=== PATIENT | female | born 2000 | race Caucasian/White ===

== ENCOUNTER 2020-02-16 23:52 | Emergency (ER) | payer OTHER ==
[~2020-02-16] VITALS: Ht 147.3 cm; Wt 50.4 kg
[2020-02-17] MEDS ORDERED: VISTARIL 25 MG25 M1 PO (00:29)
[2020-02-17 00:55] VITALS: BP 130/87
== END 2020-02-17 00:56 | disposition home or self-care (01) ==
LOC: M.ERS 23:52
DX: F41.9 Anxiety disorder, unspecified (principal)

== ENCOUNTER 2020-02-28 20:43 | Observation (INO) | payer OTHER ==
[~2020-02-28] VITALS: Ht 147.3 cm; Wt 49.9 kg
[~2020-02-28 20:43] MED LIST: VISTARIL 25 MG25 M1 PO
[2020-02-28 20:46] VITALS: BP 97/45
[2020-02-28 21:32] LABS: ABSOLUTE BASOPHILS 0.1 thou/uL (0.0-0.2); ABSOLUTE EOSINOPHILS 0.4 thou/uL (0.0-0.7); ABSOLUTE LYMPHOCYTES 2.5 thou/uL (0.8-5.3); ABSOLUTE MONOCYTES 0.8 thou/uL (0.0-1.2); ABSOLUTE NEUTROPHILS 6.3 thou/uL (1.6-8.1); BASOPHILS 0.6 %; EOSINOPHILS 3.7 %; HEMATOCRIT 39.7 % (37.0-47.0); LYMPHOCYTES 25.4 %; MCH 29.9 pg (26.0-34.0); MCHC 35.3 g/dL (28.0-37.0); MCV 84.7 fL (80.0-100.0); MONOCYTES 7.7 %; NUCLEATED RBCS 0 /100WBC; PLATELET COUNT* 358 thou/uL (150-400); POLYS 62.6 %; RBC 4.69 mil/uL (4.20-5.00); RDW-CV 12.7 % (10.5-14.5)
[2020-02-28 21:48] LABS: CALCIUM 8.8 mg/dL (8.5-10.1); CREATININE 0.7 mg/dL (0.6-1.3); POTASSIUM 3.9 mmol/L (3.5-5.1)
[2020-02-28 21:52] LABS: ALBUMIN 3.7 g/dL (3.4-5.0); MAGNESIUM 2.5 mg/dL (1.8-2.4); TOTAL BILIRUBIN 0.5 mg/dL (<0.1-1.0); TOTAL PROTEIN 7.4 g/dL (6.4-8.2)
[2020-02-29] MEDS ORDERED: DOXYCYCLINE 10100 M2 PO (03:20)
[2020-02-29] MEDS ORDERED: ZPAK PO (03:20)
[2020-02-29 03:30] VITALS: BP 114/71
--- NOTE | 2020-02-29 10:32 | EKG ---
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 /EPI
== END 2020-02-29 04:29 | disposition left against medical advice (07) ==
LOC: M.ERS 20:43 → M.TBA-ER 02-29 01:52 → M.2W 02-29 02:03
PROVIDERS: Emergency Medicine Emergency Medical Services; ADMIT Internal Medicine; ATTEND Internal Medicine
DX: R07.89 Other chest pain (principal); F41.9 Anxiety disorder, unspecified

== ENCOUNTER 2020-02-29 13:34 | Emergency (ER) | payer OTHER ==
[~2020-02-29] VITALS: Ht 147.3 cm; Wt 49.9 kg
--- NOTE | ~2020-02-29 | CON ---
[address] [address] CONSULTATION Name: ELVI HIGH [id number] Admission: 02/29/20 Attend Phys: Discharge: 02/29/20 Date of : [birth year] Report #: [id number] THIS REPORT FOR: //name// cc: KRISHNA Chamberlain family physician/PCP KRISHNA - Cintia family physician/PCP ~ THIS REPORT FOR: //name// CC: KRISHNA physician/PCP Traci Sweet DATE OF SERVICE: 02/29/2020 CARDIOLOGY CONSULTATION HISTORY OF PRESENT ILLNESS: The patient is a 20-year-old single white female who I was asked to see in the Emergency Room today after she complained of chest pain. The patient has a long and extensive past medical history. She apparently was born premature as a twin at [facility]. Several days after being born, she underwent open heart surgery. According to family members. 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 She underwent corrective surgery and had a hole in her heart, replaced. When she was 10 years old, she required a second open heart surgery at [facility]. 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 She was told she may need a repeat surgery in the future. She last saw her fast food sales assistant at [facility] about a year ago and had an echocardiogram. She was told she had no restrictions from a heart standpoint. She does receive SBE prophylaxis. The patient states recently she has been under a lot of stress. For the past several weeks, she has had continuous pain in her chest. She describes a sharp pain. It is not related to exertion, meals or lifting. She has had no trauma to her chest. She denied any drainage. There is no rash. She denies any vomiting, fever or cough. She denies palpitations. She does get short of breath when she exerts herself. She has occasional edema. PAST MEDICAL HISTORY: Otherwise unremarkable. She has a control implant in place. She has no history of hypertension, diabetes. ALLERGIES: She has no known drug allergies. MEDICATIONS: She is on no chronic medications. FAMILY HISTORY: Negative for heart disease. SOCIAL HISTORY: She is single, lives with her father. 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 No smoking or alcohol abuse or illicit drug use. REVIEW OF SYSTEMS: No history of stroke, asthma, liver disease, kidney disease, [place] [address] CONSULTATION Name: ELVI HIGH Room: [facility]#: [id number] Admission: 02/29/20 Attend Phys: Discharge: 02/29/20 Date of : [birth year] Report #: [id number] cancer, psychiatric illness, chronic skin condition. PHYSICAL EXAMINATION: GENERAL: Revealed a young white female, who appeared in no distress. VITAL SIGNS: She had a blood pressure of 100/60, pulse is 100. She is afebrile. HEENT: She was anicteric. Conjunctivae are pink. Mucous membranes moist. NECK: Veins do not appear distended. CHEST: Clear to auscultation. CARDIOVASCULAR: Regular rate and rhythm, grade 4 systolic ejection murmur at left sternal border, grade 2 diastolic blowing murmur. ABDOMEN: Soft. EXTREMITIES: Had no edema. Posterior tibial pulse 2+ bilaterally. SKIN: Cool and dry. NEUROLOGIC: Nonfocal. RADIOLOGICAL DATA: ECG shows a sinus rhythm with a right bundle branch block. Her workup in the Emergency Room, she had a portable chest x-ray that showed normal heart size, focal infiltrate in the right perihilar area. She had a CT scan of the chest performed, evidence of previous surgical correction. The ascending aorta was prominent. No evidence of pulmonary embolus. LABORATORY DATA: Sodium 137, creatinine 0.8. Liver function studies were normal. Troponins all 0.06. BNP 326. White blood cell count 10.2, hemoglobin 14.7. IMPRESSION AND RECOMMENDATIONS: 1. Congenital heart disease. Previous correction of transposition of great arteries. The patient followed at [facility]. 2. Previous valve replacement. The patient might require repeat valve surgery in the future. 3. Anxiety. 4. Chest pain. Possible musculoskeletal. Recommend no additional cardiac evaluation at this time. I think it is reasonable to discharge the patient from the Emergency Room and have her follow up with [facility]. 5. control implant in place. By: [id number] Banda MD, FACC /nt
[~2020-02-29 13:34] MED LIST changes: +DOXYCYCLINE 10100 M2 PO; +ZPAK PO
[2020-02-29 16:05] LABS: ABSOLUTE BASOPHILS 0.1 thou/uL (0.0-0.2); ABSOLUTE EOSINOPHILS 0.2 thou/uL (0.0-0.7); ABSOLUTE LYMPHOCYTES 1.5 thou/uL (0.8-5.3); ABSOLUTE MONOCYTES 0.6 thou/uL (0.0-1.2); ABSOLUTE NEUTROPHILS 7.8 thou/uL (1.6-8.1); BASOPHILS 0.5 %; EOSINOPHILS 1.5 %; HEMATOCRIT 40.7 % (37.0-47.0); HEMOGLOBIN 14.7 gm/dL (12.0-15.0); LYMPHOCYTES 14.9 %; MCH 30.5 pg (26.0-34.0); MCV 84.7 fL (80.0-100.0); MONOCYTES 6.4 %; NUCLEATED RBCS 0 /100WBC; PLATELET COUNT* 376 thou/uL (150-400); POLYS 76.7 %; RBC 4.81 mil/uL (4.20-5.00); RDW-CV 12.8 % (10.5-14.5); WBC 10.2 thou/uL (4.0-11.0)
[2020-02-29 16:39] LABS: CALCIUM 8.8 mg/dL (8.5-10.1); CREATININE 0.8 mg/dL (0.6-1.3); POTASSIUM 3.7 mmol/L (3.5-5.1)
[2020-02-29 16:44] LABS: ALBUMIN 3.9 g/dL (3.4-5.0); TOTAL BILIRUBIN 1.1 mg/dL (<0.1-1.0)
[2020-02-29 16:56] LABS: TOTAL PROTEIN 7.7 g/dL (6.4-8.2)
--- NOTE | 2020-02-29 17:27 | EKG ---
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 02/29/20 1727 1346 1346 Nando Banda MD, [facility] /EPI
[2020-02-29 18:24] VITALS: BP 99/56
== END 2020-02-29 18:24 | disposition home or self-care (01) ==
LOC: M.ERS 13:34
PROVIDERS: Physician Assistant
DX: S61.512A Laceration without foreign body of left wrist, initial encounter (principal); F41.9 Anxiety disorder, unspecified; R07.89 Other chest pain; X58.XXXA Exposure to other specified factors, initial encounter; Y93.89 Activity, other specified; Y92.89 Other specified places as the place of occurrence of the external cause; Y99.8 Other external cause status